=== PATIENT | female | born 1995 | race Caucasian/White ===

== ENCOUNTER 2018-05-31 04:23 | Emergency (ER) | payer SELFPAY ==
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
[2018-05-31] MEDS ORDERED: DIPHTH/TETANUS/ACEL. PERTUSSIS IM ONLY ONE (04:55)
--- NOTE | 2018-05-31 06:11 | RADIOLOGY IMAGING REPORT ---
FACILITY: [facility] PATIENT NAME: Nancy Roche : 1995 MR: [id number] V: [id number] EXAM DATE: ORDERING PHYSICIAN: JOSE MALDONADO TECHNOLOGIST: Location: [facility] Patient: Nancy Roche : 1995 Visit/Account:[id number] Date of Sevice: 05/31/2018 HEAD W/O CONTRAST HISTORY: Trauma COMPARISON STUDIES: None TECHNIQUE: Contiguous axial images were obtained from the skull base to the vertex. One of the [employer] dose optimization techniques was utilized in the performance of this exam: automated exposure co ntrol; adjustment of the mA and/or kv according to patient size; or use of iterative reconstruction t echnique. Specific details can be referenced in the facility's radiology CT exam operational policy. FINDINGS: Hemorrhage: Negative Ventricles / sulci / fissures: Negative Masses / midline shift: Negative White matter: Negative Aguero-white differentiation: Negative Vessels: Negative Extra-axial spaces: Negative Bones/skull base: Negative Visualized mastoid air cells / paranasal sinuses: Negative Scalp and soft tissues: Negative. Other findings: None significant IMPRESSION: 1. Negative for acute intracranial blood or skull fracture. 2. Please see separate report for CT of the facial bones. Report Dictated By: Homar Morales MD at 05/31/2018 6:04 AM Report E-Signed By: Homar Morales MD at 05/31/2018 6:07 AM WSN:[id number]
--- NOTE | 2018-05-31 06:21 | RADIOLOGY IMAGING REPORT ---
FACILITY: [facility] PATIENT NAME: Nancy Roche : 1995 MR: [id number] V: [id number] EXAM DATE: ORDERING PHYSICIAN: JOSE MALDONADO TECHNOLOGIST: Location: [facility] Patient: Nancy Roche : 1995 Visit/Account:[id number] Date of Sevice: 05/31/2018 FACIAL BONES W/O CONTRAST HISTORY: Trauma COMPARISON STUDIES: none TECHNIQUE: Axial images were obtained from the superior aspect of the orbits through the inferior as pect of mandible without intravenous contrast. Coronal and sagittal reformatted images were obtained from the axial source data. One of the following dose optimization techniques was utilized in the per formance of this exam: automated exposure control; adjustment of the mA and/or kv according to patien t size; or use of iterative reconstruction technique. Specific details can be referenced in the [facility]'s radiology CT exam operational policy. CONTRAST: None FINDINGS: Soft Tissues: Negative Mandible / TMJ: Negative Maxilla / pterygoid plates: Negative Zygoma: Negative Orbits: Negative Nasal bones / nasal septum: Nondisplaced fracture of the left aspect of the nasal bone. Sinuses: Negative Mastoids: Negative Visualized brain: Negative Cervical spine: Negative Other findings: None significant IMPRESSION: 1. Nondisplaced fracture involving the left aspect of the nasal bone. Report Dictated By: Homar Morales MD at 05/31/2018 6:13 AM Report E-Signed By: Homar Morales MD at 05/31/2018 6:17 AM WSN:[id number]
[2018-05-31] MEDS ORDERED: NAPR220C12 PO (06:34)
[2018-05-31 07:30] VITALS: BP 149/96
== END 2018-05-31 07:40 | disposition home or self-care (01) ==
LOC: ER 04:28
DX: S02.2XXA Fracture of nasal bones, initial encounter for closed fracture (principal); R51 Headache; Y04.2XXA Assault by strike against or bumped into by another person, initial encounter
CPT/HCPCS: 70450; 70486; 90471; 90715; 99284